=== PATIENT | male | born 1995 | race Caucasian/White ===

== ENCOUNTER 2024-06-24 17:34 | Emergency (ER) | payer SELFPAY ==
[~2024-06-24] VITALS: Ht 157.5 cm; Wt 86.0 kg
[2024-06-24 18:59] VITALS: TEMP 37; O2SAT 98
[2024-06-24 20:04] LABS: CLARITY URINE CLEAR (CLEAR); COLOR URINE YELLOW (YELLOW); GLUCOSE URINE NEGATIVE (NEGATIVE); KETONES URINE NEGATIVE (NEGATIVE); LEUKOCYTE ESTERASE URINE NEGATIVE (NEGATIVE); NITRITE URINE NEGATIVE (NEGATIVE); OCCULT BLOOD URINE NEGATIVE (NEGATIVE); PROTEIN URINE NEGATIVE (NEGATIVE); SPECIFIC GRAVITY URINE 1.019 (1.005-1.030)
[2024-06-24] MEDS: MAGNESIUM/ALUMINUM HYDROXIDE/SIMETHICONE 30ML UDC PO ONE (21:47)
[2024-06-24] MEDS: FAMOTIDINE 20MG TABLET PO ONE (21:47)
[2024-06-24] MEDS: VISCOUS LIDOCAINE 2% 15 ML UDC MM STA (21:47)
[2024-06-24 23:10] LABS: BASOPHILS % 0.5 % (0.0-2.0); EOSINOPHILS % 0.8 % (0.0-5.0); LYMPHOCYTES % 23.1 % (20.0-50.0); MEAN CORPUSCULAR HEMOGLOBIN 31.6 pg (28.0-32.0); MEAN CORPUSCULAR HGB CONC 35.5 g/dL (31.0-37.0); MEAN CORPUSCULAR VOLUME 88.9 fL (80.0-94.0); MEAN PLATELET VOLUME 7.6 fl (7.4-10.4); MONOCYTES % 3.8 % (2.0-8.0); NEUTROPHILS % 71.8 % (40.0-76.0); PLATELET 506 x1000/uL (130-400); RED BLOOD CELL COUNT 5.07 mill/uL (4.7-6.1); RED CELL DISTRIBUTION WIDTH 13.1 % (11.6-14.6); WHITE BLOOD COUNT 10.8 x1000/uL (4.5-11.0)
[2024-06-24 23:21] LABS: CHLORIDE 101 mEq/L (98-107); POTASSIUM 3.9 mEq/L (3.5-5.1); SODIUM 138 mEq/L (136-145)
[2024-06-24 23:22] LABS: CARBON DIOXIDE 28 mEq/L (21-32)
[2024-06-24 23:23] LABS: CALCIUM 10.5 mg/dL (8.7-10.4)
[2024-06-24 23:27] LABS: CREATININE 0.8 mg/dL (0.6-1.3)
[2024-06-24 23:28] LABS: GLUCOSE 105 mg/dL (70-105); UREA NITROGEN BLOOD 8 mg/dL (9-23)
[2024-06-24 23:29] LABS: ALANINE AMINOTRANSFERASE 72 IU/L (10-49); ALBUMIN 5.5 g/dL (3.2-4.8); ASPARTATE AMINOTRANSFERASE 32 IU/L (<34)
[2024-06-24 23:30] LABS: BILIRUBIN DIRECT 0.1 mg/dL (<=3.0); BILIRUBIN TOTAL 0.5 mg/dL (0.1-1.0); PROTEIN TOTAL 8.5 g/dL (6.0-8.3)
[2024-06-25] MEDS ORDERED: MAG355OR21 MT (01:10)
[2024-06-25] MEDS ORDERED: FAMO-135 MT (01:10)
[2024-06-25 01:28] VITALS: BP 120/82; PULSE 73; RESP 18; O2SAT 100
== END 2024-06-25 01:30 | disposition home or self-care (01) ==
LOC: ER 17:34
DX: R10.13 Epigastric pain (principal); Z90.49 Acquired absence of other specified parts of digestive tract
CPT/HCPCS: 36415; 74176; 80048; 80076; 81003; 85025; 99284